=== PATIENT | male | born 1955 | race Caucasian/White ===

== ENCOUNTER 2023-06-21 09:46 | Day surgery (SDC) | payer MEDICAID, SELFPAY ==
[2023-06-21] VITALS (23 sets, daily range): BP systolic 92–112; BP diastolic 56–82; BMI 27.4
[2023-06-21 06:44] LABS: % Basophils 0.2 % (0-2); % Eosinophils 1.5 % (0-6); % Immature Granulocytes 0.2 % (0-0.5); % Lymphocytes 21.8 % (20.5-51.1); % Monocytes 7.6 % (1.7-9.3); % Neutrophils 68.7 % (42.2-75.2); Absolute Eosinophils 0.1 10^3/uL (0-0.7); Absolute Lymphocytes 2.1 10^3/uL (1.2-3.4); Absolute Monocytes 0.7 10^3/uL (0.1-0.6); Absolute Neutrophils 6.5 10^3/uL (1.4-6.5); Hematocrit 44.1 % (39.0-52.0); Hemoglobin 14.7 g/dL (13.0-18.0); Mean Corp Hgb Conc. 33.3 g/dL (33.0-37.0); Mean Corpuscular Hgb 28.4 pg (27.0-31.0); Mean Corpuscular Volume 85.1 fL (80.0-94.0); Mean Platelet Volume 10.7 fL (7.4-10.4); Nucleated Red Blood Cells % 0 % (-); Platelet Count 141 10^3/uL (130-400); Red Blood Cell Count 5.18 10^6/uL (4.70-6.10); Red Cell Dist. Width 13.7 % (11.5-14.5); White Blood Cell Count 9.4 10^3/uL (4.8-10.8)
[2023-06-21 07:07] LABS: ALT (SGPT) 30 U/L (0-50); AST (SGOT) 39 U/L (17-59); Albumin 4.3 g/dl (3.5-5.0); Alkaline Phosphatase 64 U/L (38-126); Blood Urea Nitrogen 22 mg/dl (9-20); Calcium 9.4 mg/dl (8.4-10.2); Carbon Dioxide 24 mmol/L (22-30); Chloride 108 mmol/L (98-107); Estimated Creatinine Clearance 61 ml/min; Glucose 107 mg/dl (70-99); Sodium 137 mmol/L (135-145); Total Bilirubin 0.8 mg/dl (0.2-1.3); Total Protein 7.1 g/dl (6.3-8.2); eGFR > 60.00
[2023-06-21 07:08] LABS: Troponin I < 0.012 ng/ml
--- NOTE | 2023-06-21 09:06 | ED.GENMED ---
History of Present Illness
General
Chief Complaint: Chest Problem
Source: patient
Exam Limitations: none
Time Seen by Provider: 06/21/23 06:51
Nursing documentation reviewed up to this point in time: agreed with
Travel History
Have you had any contact with someone who has COVID-19?: Unable to Answer
Do you have any symptoms of coronavirus? Fever > 100 degrees, chills, cough, shortness of breath, sore throat, loss of taste or smell, muscle aches, or headache?: Unable to Answer
History of Present Illness
History of Present Illness:
67-year-old male with a past medical history of atrial fibrillation (on flecainide), hypertension, hyperlipidemia who presents to the emergency department accompanied by his family for evaluation of chest pain. Patient reports onset of symptoms
around 1 AM and they lasted for approximately 6 hours resolved shortly after arrival here. He describes a vague pressure in the left side of his chest that radiated towards the left shoulder and jaw. Was associated with some chills/diaphoresis.
He denies any associated shortness of breath. There was no nausea or vomiting. Was in his normal state of health before bed has not had any recent coughing or fevers/chills. No swelling or pain in the legs. He recently moved here from [place] he
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
Review of Systems
Review of Systems
All Other Systems: ROS reviewed and negative except as documented in HPI and ROS
Constitutional: Reports chills; Denies fever
EENT: Denies sore throat or runny nose
Respiratory: Denies cough or trouble breathing
Cardiac: Reports chest pain and diaphoresis; Denies palpitations or syncope
ABD/GI: Denies abdominal pain, nausea, vomiting or diarrhea
: Denies flank pain
Musculoskeletal: Denies neck pain or back pain
Neurological: Denies dizzy, headache, weakness or numbness
Phy Exam
Physical Exam
Physical Exam:
General: Awake, alert, oriented x3; no acute distress
Head: Normocephalic, atraumatic
Eyes: Conjunctiva normal, sclera anicteric
Throat: Airway intact, handling secretions
Neck: Trachea midline, supple without meningismus
Lungs: Clear to auscultation bilaterally, no wheezing, rales, rhonchi
Heart: Regular rate and rhythm, no murmurs, gallops, or rubs
Abd: Soft, non distended, nontender
Neuro: Cranial nerves grossly intact, speech fluid
Skin: no rash
Extremities: No edema in extremities, equal pulses in all extremities
Scores
Heart Failure Risk
Heart Failure Risk Score: Not Applicable
Heart Score for Chest Pain Patients
STEMI patient?: No
History: Moderately Suspicious
ECG: Normal
Age: >/= 65 years
Risk Factors: 1 or 2 Risk Factors
Troponin: </= Normal Limit
Heart Score for Chest Pain Patients: 4
Heart Score Risk: 20.3% MACE over next 6 weeks
PE Wells Score
Symptoms of DVT: No
No alternative diagnosis better explains the illness: No
Tachycardia with pulse > 100: No
Immobilization (>=3 days) or surgery within previous 4 weeks: No
Prior history of DVT or pulmonary embolism: No
Presence of hemoptysis: No
Presence of malignancy: No
Pulmonary Embolism Risk Score: 0
Probability of PE: Pt is low risk
Withdrawal Assessment of Alcohol
Withdrawal Assessment Completed?: Not applicable
Course
Orders/Labs/Results
Orders:
Orders
06/21/23 06:14
Electrocardiogram (*1) Urgent
Reason for Study: Chest Pain
EKG- Treatment ONCE
06/21/23 06:36
Complete Blood Count/With Diff Urgent
Comprehensive Metabolic Panel Urgent
Troponin I Urgent
06/21/23 07:36
CR Chest - 2 Views Urgent
Comment:
Reason For Exam: chest pain
06/21/23 08:10
D-Dimer Urgent
06/21/23 08:37
CARDIOLOGY CONSULT Urgent
Consulting Provider: Reinier Willoughby
Was physician already notified: Yes
06/21/23 09:14
Troponin I Urgent
06/21/23 09:15
Aspirin Chewable [Low Strength Aspirin] 324 mg PO NOW STA
Nitroglycerin Sublingual [Nitrostat (Sublingual)] 0.4 mg SL NOW STA
06/21/23 09:29
PTT Urgent
Comment: Obtain baseline before beginning heparin infusion if not already collected
Heparin 4,000 units IV NOW STA
Pharmacy Request to Place See Dose Instructions PO NOW STA
Discontinue all Active Warfarin orders?: Yes
Nursing to Place Non Medication Order As Directed
Physician Order: PTT 6 hours after initial start of Heparin infusion
06/21/23 10:[address] See Dose Instructions IV DIRECTED
Abnormal Lab Results
06/21/23
06:36
MPV 10.7 H fL
(7.4-10.4)
Absolute Monos (auto) 0.7 H 10^3/uL
(0.1-0.6)
Chloride 108 H mmol/L
(98-107)
BUN 22 H mg/dl
(9-20)
Glucose 107 H mg/dl
(70-99)
06/21/23 06:36
06/21/23 06:36
Vital Signs
Initial and Last Documented VS:
Initial Vital Signs
Temp Pulse Resp BP Pulse Ox
36.8 C 68 20 111/69 100
06/21/23 06:15 06/21/23 06:15 06/21/23 06:15 06/21/23 06:15 06/21/23 06:15
Last Documented Vital Signs
Temp Pulse Resp BP Pulse Ox
36.8 C 62 18 104/67 98
06/21/23 06:15 06/21/23 09:09 06/21/23 08:08 06/21/23 09:09 06/21/23 09:09
MDM/Problems Addressed
Differential Diagnosis Includes:
ACS, PE, GERD, pneumonia, pericarditis, costochondritis
MDM/Problems Addressed:
67-year-old male presents for evaluation after a prolonged episode of chest pain radiating to the left shoulder and jaw associated with chills/diaphoresis. He says he is currently chest pain-free. His vital signs are all within normal limits.
Physical exam as above. EKG shows no STEMI. Plan to place an IV check labs including a CBC and a CMP. Will send serial troponins. Will check a D-dimer. Will check a chest x-ray. Will monitor on telemetry. Will reassess after the above.
Labs reviewed: CBC unremarkable, CMP no clinically significant abnormalities. Troponin negative times 1 repeat pending. D-dimer negative. Chest x-ray reviewed by me shows no acute disease. Vital signs remained stable continue to monitor.
Discussed with cardiology for assessment with HEART score of 4.
Clinical reassessment patient having return of chest pain will dose with nitroglycerin and aspirin. Cardiology at bedside.
Cardiology evaluated plan to take for cardiac catheterization with concern for unstable angina. Will give heparin bolus here.
Chronic conditions affecting care:
Hypertension, hyperlipidemia�higher risk for CAD
*Radiology
Radiology exam reviewed: preliminary read by ED provider and radiology read reviewed
*Pulse Oximetry
Patient hypoxic: no
*EKG
Interpreted by ED Provider?: Yes
Heart Rate: 72
Rate: normal
Rhythm: sinus
Wesco: normal axis
Interval: normal interval
QRS Pattern: normal QRS
Ischemia: no ischemia
*Critical Care Note
Total Time (30-74mins, 75-104mins- exclusive of procedures): Not Applicable
Data Reviewed
Source: patient and family
Patient Management
Discussion with other providers: Early Childhood Educator Aide (Discussed with cardiology)
ED Attending Note
-
Portions of this chart may have been created with voice recognition software.� Occasional wrong word or��sound alike� substitutions may have occurred due to the inherent limitations of voice recognition software.
Discharge Plan
Departure
Patient Disposition: [facility]
Date of Disposition: 06/21/23
Time of Disposition: 09:31
Admit to doctor: Fartun
Presentation/result/management discussed w/ accepting MD/DO: Fartun
Discharge Problem:
Unstable angina
Prescriptions:
No Action
atorvastatin 40 mg Tablet
40 mg PO DAILY
clopidogrel [Plavix] 75 mg Tablet
75 mg PO DAILY
bisoprolol fumarate 10 mg Tablet
30 mg PO DAILY
flecainide [Tambocor] 100 mg Tablet
100 mg PO Q12H
zolpidem 10 mg Tablet
10 mg PO DAILY
Systane Gel 0.4-0.3 % Drops,Gel
1 drp OPHTHALMIC (EYE) DAILY
Referrals:
Yoli Barlow MD [Family Provider] -
Interventions
Interventions:
*Risk Screen - Suicide Last Done: 06/21/23 06:23
*General Assessment Last Done: 06/21/23 06:23
*Neglect/Abuse Screening Last Done: 06/21/23 06:23
ED- Fall Risk Assessment Last Done: 06/21/23 06:23
*ED COVID-19 Vaccine History Last Done: 06/21/23 06:23
ED- Cardiac Assessment Last Done: 06/21/23 06:23
ED- Pulmonary Assessment Last Done: 06/21/23 06:23
--- NOTE | 2023-06-21 09:17 | EDRN ---
the pts daughter came out to the nurses station and approached this RN stating that her father has chest pressure that is 6/10, this RN notified Dr. Zheng, VS WNL
[2023-06-21] MEDS: LOW STRENGTH ASPIRIN 324 MG PO (09:18)
[2023-06-21] MEDS: NITROSTAT (SUBLINGUAL) 0.400000000000000022 MG SL (09:19)
--- NOTE | 2023-06-21 09:22 | EDRN ---
cardiology currently at the pts bedside speaking with the pt and the pts family
[2023-06-21] MEDS: HEPARIN 4000 UNITS IV (09:33)
[2023-06-21] MEDS: PLAVIX 75 MG PO (09:38)
--- NOTE | 2023-06-21 09:39 | EDRN ---
verbal report given to clinical laboratory scientist nurse Bear CARABALLO
--- NOTE | 2023-06-21 09:42 | HPS.HSE ---
Family Physician
-
Family Physician: Yoli Barlow
Chief Complaint
-
cp since 2 am
History of Present Illness
67-year-old gentleman who just moved here from [place] (primarily [place]cheaper speaking) with a past medical history of PAF status post cardioversion 10 years ago managed on Plavix and flecainide from [place], hypertension, and hyperlipidemia
presents for evaluation of sudden onset of chest pressure radiating to the left shoulder and jaw beginning last night. This persisted for several hours but then began to recur when arrival here. He does state he took a nitroglycerin from his
at night but did not seem to initially help. Currently, still having some mild chest pressure, shoulder pain and jaw pain have resolved. He we gave him a nitroglycerin and this is helping. He has a family history of premature coronary artery
disease in his mother at the age of 55. He is a remote smoker but quitting in his 20s. He does not drink alcohol routinely. Typically he is quite active and was able to do his walk for exercise yesterday without any issue.
Medical History
Past Medical History
Past Medical History: Reports Arrhythmia (PAF), HTN, Hypercholesterolemia and Other (Prostatitis)
Past Surgical History: Reports None
Social History
Tobacco: Former Smoker (Quit many years ago in his 20s)
Alcohol: Occasional
Personal:
Living: Other (Just moved from [place])
Family History
Family History: Early CAD (Mother 55 years old)
Allergies / Home Medications
Allergies reflects when Allergies were last updated in [facility].
Home Medications with original date entered in [facility]
Allergy/Medication List:
Cephalosporin rash
Review of Systems
-
A 12 point ROS was completed and negative except as noted: Yes
Physical Exam
Vital Signs
Vital Signs
Temp Pulse Resp BP Pulse Ox
98.3 F 80 18 97/68 96
06/21/23 06:15 06/21/23 09:30 06/21/23 08:08 06/21/23 09:30 06/21/23 09:30
Physical Exam
General: Well Developed, Well Nourished and No Apparent Distress
HEENT: NormoCephalic, Anicteric and Moist mucous membranes
Respiratory: Clear, Wheezes (None), Rales (None) and Rhonchi (None)
Cardiac: S1/S2, Regular Rhythm, Murmur (None) and Rub (None)
Breast: Deferred by me
GI: Soft, Non Tender and Non Distended
Musculoskeletal: No Clubbing, No Cyanosis and No Edema
Skin: Warm
Neuro: AO x 3
Laboratory Results
-
06/21/23 06:36
Laboratory Results
Total Bilirubin 0.8 mg/dl (0.2-1.3) 06/21/23 06:36
AST 39 U/L (17-59) 06/21/23 06:36
ALT 30 U/L (0-50) 06/21/23 06:36
Alkaline Phosphatase 64 U/L (38-126) 06/21/23 06:36
Troponin I < 0.012 ng/ml 06/21/23 06:36
Data Reviewed
-
Medical Tests (Nuc Med, Echo, EKG etc): Image Personally Visualized and interpreted (NSR)
Lab Data: Labs Reviewed by me (first trop negatove)
Impression/Plan
-
IMPRESSION:
67-year-old gentleman with a past medical history of hypertension, hyperlipidemia, PAF and family history of premature coronary artery disease presents with symptoms concerning for ACS.
PLAN:
ACS:
This is a high risk situation, I have discussed with interventional cardiology Dr. Hopper as I am recommending urgent catheterization. Will be arranged for this morning.
He was given 4 baby aspirin's, will get a heparin bolus and his daily dose of Plavix.
Cotninue BB and High-dose statin, additional OMT as indicated
Check lipid panel. Check A1c.
Continue to trend troponin.
Echo planned
PAF: Reports cardioversion 10 years ago chronically on flecainide without any anticoagulation.
Continue flecainide.
Will ask case management to [facility], needs to be initiated on DOAC given his CHADS2 Vasc score of 2 possibly 3(if cath with CAD)
If no CAD present, would then stop Plavix and lieu of DOAC.
Hypertension: Chronic continue beta-carina. Add OMT as indicated after catheterization.
Hyperlipidemia: Check lipid panel, continue statin
[2023-06-21 09:52] LABS: Troponin I < 0.012 ng/ml
--- NOTE | 2023-06-21 10:57 | ITS.CL.CATH ---
Manager Of Drilling - Catheterization
Cardiac Catheterization
Procedure Report:
CARDIAC CATHETERIZATION REPORT
Date of Procedure: 06/21/2023
Referring: Arlen Willoughby MD
Indication: Chest pain with suspected unstable angina (troponin x 2 negative)
HEMODYNAMIC DATA
AO: 112/74
LV: 112/10
LEFT VENTRICULOGRAPHY: Normal left ventricular wall motion with EF 58%
CORONARY ANGIOGRAPHY
Dominance: Codominant
Left Main: Normal
LAD: Mild luminal irregularities in the mid LAD. 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
Circumflex: Large codominant vessel with trivial luminal irregularities
RCA: Small codominant vessel
Closure Device: None-the procedure was performed via the right radial artery. The Nura's test was normal prior to the procedure.
Radiation (mGy): 240
DAP (cm2.Gy): 20.6
Fluoroscopy time: 1.5 minutes
CONCLUSIONS
1: Normal left ventricular function with EF 58%
2: No significant CAD
3. Following discussion with Dr. Willoughby, we will plan to discharge the patient on a trial of Protonix and substitute Eliquis (5 mg twice daily) for Plavix given his history of PAF. Atorvastatin 40 mg daily is recommended.
Copy to: Arlen Willoughby MD
Reginaldo Hopper MD, [facility]
--- NOTE | 2023-06-21 12:45 | CM ---
Asked to check co-pay on Eliquis. Telephone call to Eliquis 5 mg po bid. [facility] states there is zero co-pay. Updated ROLL [facility]ER.
== END 2023-06-21 14:45 | disposition home or self-care (01) ==
LOC: CATH 09:46
PROVIDERS: ATTENDING PHYSICIAN Internal Medicine Cardiovascular Disease; EMERGENCY PHYSICIAN Emergency Medicine; FAMILY PHYSICIAN Family Medicine
DX: I25.110 Atherosclerotic heart disease of native coronary artery with unstable angina pectoris (principal); Z79.899 Other long term (current) drug therapy; Z79.02 Long term (current) use of antithrombotics/antiplatelets; Z79.01 Long term (current) use of anticoagulants; I48.0 Paroxysmal atrial fibrillation; Z87.891 Personal history of nicotine dependence; I10 Essential (primary) hypertension; E78.00 Pure hypercholesterolemia, unspecified; Z82.49 Family history of ischemic heart disease and other diseases of the circulatory system
CPT/HCPCS: 71046; 80053; 84484; 85025; 85379; 93005; 93306; 93458; 96374; 99285; C1894; Q9967

== ENCOUNTER 2024-02-12 09:55 | Outpatient (RCR) | payer MEDICAID, SELFPAY | END 2024-02-12 23:59 | disposition home or self-care (01) | LOC: RPT 09:55 | PROVIDERS: ATTENDING PHYSICIAN Physical Medicine & Rehabilitation | DX: M54.51 Vertebrogenic low back pain (principal); H81.10 Benign paroxysmal vertigo, unspecified ear; Z73.6 Limitation of activities due to disability; R26.89 Other abnormalities of gait and mobility | CPT/HCPCS: 97110; 97162 ==

== ENCOUNTER 2024-03-02 09:54 | Outpatient (RCR) | payer MEDICAID, SELFPAY | END 2024-03-02 23:59 | disposition home or self-care (01) | LOC: RPT 09:54 | PROVIDERS: ATTENDING PHYSICIAN Physical Medicine & Rehabilitation | DX: M54.51 Vertebrogenic low back pain (principal); H81.10 Benign paroxysmal vertigo, unspecified ear; Z73.6 Limitation of activities due to disability; R26.89 Other abnormalities of gait and mobility | CPT/HCPCS: 97110 ==

== ENCOUNTER 2024-09-10 05:50 | Outpatient (RCR) | payer MEDICAID, SELFPAY | END 2024-09-10 23:59 | disposition home or self-care (01) | LOC: RPT 05:50 | PROVIDERS: ATTENDING PHYSICIAN Family Medicine | DX: M54.51 Vertebrogenic low back pain (principal); M25.561 Pain in right knee; M25.562 Pain in left knee; Z73.6 Limitation of activities due to disability | CPT/HCPCS: 97110; 97162 ==

== ENCOUNTER 2024-10-06 10:07 | Outpatient (RCR) | payer MEDICAID, SELFPAY | END 2024-10-06 23:59 | disposition home or self-care (01) | LOC: RPT 10:07 | PROVIDERS: ATTENDING PHYSICIAN Family Medicine | DX: M54.51 Vertebrogenic low back pain (principal); M25.561 Pain in right knee; M25.562 Pain in left knee; Z73.6 Limitation of activities due to disability | CPT/HCPCS: 97110; 97530 ==

== ENCOUNTER 2024-10-08 10:04 | Outpatient (RCR) | payer MEDICAID, SELFPAY | END 2024-10-08 23:59 | disposition home or self-care (01) | LOC: ROT 10:04 | PROVIDERS: ATTENDING PHYSICIAN Family Medicine | DX: M19.042 Primary osteoarthritis, left hand (principal); M19.041 Primary osteoarthritis, right hand; Z73.6 Limitation of activities due to disability | CPT/HCPCS: 97166; 97535 ==

== ENCOUNTER 2024-11-06 09:54 | Outpatient (RCR) | payer MEDICAID, SELFPAY | END 2024-11-12 11:32 | disposition home or self-care (01) | LOC: RPT 09:54 | PROVIDERS: ATTENDING PHYSICIAN Family Medicine | DX: M54.51 Vertebrogenic low back pain (principal); M25.561 Pain in right knee; M25.562 Pain in left knee; Z73.6 Limitation of activities due to disability | CPT/HCPCS: 97110; 97530 ==

== ENCOUNTER 2024-11-06 09:56 | Outpatient (RCR) | payer MEDICAID, SELFPAY | END 2024-11-12 11:32 | disposition home or self-care (01) | LOC: ROT 09:56 | PROVIDERS: ATTENDING PHYSICIAN Family Medicine | DX: M19.042 Primary osteoarthritis, left hand (principal); M19.041 Primary osteoarthritis, right hand; Z73.6 Limitation of activities due to disability | CPT/HCPCS: 97018; 97110; 97535 ==